=== PATIENT | female | born 1985 | race Caucasian/White ===

== ENCOUNTER 2017-05-29 11:38 | Emergency (ER) | payer BC ==
--- NOTE | 2017-05-29 12:51 | ED ---
General Adult HPI - General Chief complaint: Vaginal Bleeding Stated complaint: Positive test with bleeding Time Seen by Provider: 05/29/17 12:27 Source: patient, RN notes reviewed Mode of arrival: ambulatory Limitations: no limitations - History of Present Illness Initial comments: Patient 32-year-old female who presents emergency room today with a chief complaint of positive test and some vaginal spotting over the last week. She does admit that she try to bring status at home today and was positive. She does admit that she's been spotting over the last week. She states she is due for her menstrual cycle began in the next few days. She does admit to one previous with a miscarriage. She denies any other complaints or associated symptoms. Patient denies any recent fever, chills, shortness of breath, chest pain, back pain, abdominal pain, nausea or vomiting, numbness or tingling, dysuria or hematuria, constipation or diarrhea, headaches or visual changes, or any other complaints. - Related Data Home Medications Medication Instructions Recorded Confirmed No Known Home Medications [No 05/29/17 05/29/17 Known Home Medications] Allergies Allergy/AdvReac Type Severity Reaction Status Date / Time Penicillins Allergy Rash/Hives Verified 05/29/17 12:32 Review of Systems ROS Statement: Those systems with pertinent positive or pertinent negative responses have been documented in the HPI. ROS Other: All systems not noted in ROS Statement are negative. Past Medical History Past Medical History: No Reported History History of Any Multi-Drug Resistant Organisms: None Reported Past Surgical History: No Surgical Hx Reported Past Psychological History: No Psychological Hx Reported Smoking Status: Never smoker Past Alcohol Use History: None Reported Past Drug Use History: None Reported General Exam - General Exam Comments Initial Comments: General: The patient is awake and alert, in no distress, and does not appear acutely ill. Eye: Pupils are equal, round and reactive to light, extra-ocular movements are intact. No nystagmus. There is normal conjunctiva bilaterally. No signs of icterus. Ears, nose, mouth and throat: There are moist mucous membranes and no oral lesions. Neck: The neck is supple, there is no tenderness or JVD. Cardiovascular: There is a regular rate and rhythm. No murmur, rub or gallop is appreciated. Respiratory: Lungs are clear to auscultation, respirations are non-labored, breath sounds are equal. No wheezes, stridor, rales, or rhonchi. Gastrointestinal: Soft, non-distended, non-tender abdomen without masses or organomegaly noted. There is no rebound or guarding present. No CVA tenderness. Bowel sounds are unremarkable. Musculoskeletal: Normal ROM, no tenderness. Strength 5/5. Sensation intact. Pulses equal bilaterally 2+. Neurological: A&O x 3. CN II-XII intact, There are no obvious motor or sensory deficits. Coordination appears grossly intact. Speech is normal. Skin: Skin is warm and dry and no rashes or lesions are noted. Psychiatric: Cooperative, appropriate mood & affect, normal judgment. Limitations: no limitations Course Vital Signs 05/29/17 12:11 Temperature 98.3 F Pulse Rate 94 Respiratory 16 Rate Blood Pressure 142/74 O2 Sat by Pulse 100 Oximetry Medical Decision Making - Medical Decision Making Patient's ultrasound shows no visualized intrauterine at this time. There is 2 tiny 2 mm cystic loculated along the fundal endometrium. Both tiny early intrauterine gestational sac and pseudo-gestational sac of ectopic are possible. 2. A 3.9 cm heterogeneous mass located between the right ovary and uterus. 3. Moderate cul-de-sac and right adnexal free fluid. 4. Left ovarian corpus luteum cyst. His results were discussed with patient. Her beta-hCG is 586 today. Patient's remaining labs are unremarkable. Her Rh is negative. She has had some spotting. Will be given Auralgan here in the emergency room. Patient has declined a pelvic exam at this time. She states she would rather follow up with her [facility]. She is advised close follow-up with [facility] over the next 1-2 days. She is advised return to the emergency room symptoms increase or worsen. Patient states understanding and is in agreement. - Lab Data Result diagrams: 05/29/17 12:15 05/29/17 12:15 Lab Results 05/29/17 05/29/17 05/29/17 Range/Units 12:15 12:15 12:15 WBC 8.9 (3.8-10.6) k/uL RBC 4.77 (3.80-5.40) m/uL Hgb 14.5 (11.4-16.0) gm/dL Hct 43.4 (34.0-46.0) % MCV 91.1 (80.0-100.0) fL MCH 30.5 (25.0-35.0) pg MCHC 33.5 (31.0-37.0) g/dL RDW 13.9 (11.5-15.5) % Plt Count 244 (150-450) k/uL Neutrophils % 76 % Lymphocytes % 17 % Monocytes % 5 % Eosinophils % 1 % Basophils % 0 % Neutrophils # 6.8 (1.3-7.7) k/uL Lymphocytes # 1.5 (1.0-4.8) k/uL Monocytes # 0.4 (0-1.0) k/uL Eosinophils # 0.1 (0-0.7) k/uL Basophils # 0.0 (0-0.2) k/uL Sodium 139 (137-145) mmol/L Potassium 4.0 (3.5-5.1) mmol/L Chloride 105 (98-107) mmol/L Carbon Dioxide 23 (22-30) mmol/L Anion Gap 11 mmol/L BUN 11 (7-17) mg/dL Creatinine 0.67 (0.52-1.04) mg/dL Est GFR (MDRD) Af Amer >60 (>60 ml/min/1.73 sqM) Est GFR (MDRD) Non-Af >60 (>60 ml/min/1.73 sqM) Glucose 87 (74-99) mg/dL Calcium 9.6 (8.4-10.2) mg/dL Total Bilirubin 1.3 (0.2-1.3) mg/dL AST 19 (14-36) U/L ALT 29 (9-52) U/L Alkaline Phosphatase 45 (38-126) U/L Total Protein 7.8 (6.3-8.2) g/dL Albumin 4.9 (3.5-5.0) g/dL HCG, Quant mIU/mL Urine Color Urine Appearance (Clear) Urine pH (5.0-8.0) Ur Specific [place] (1.001-1.035) Urine Protein (Negative) Urine Glucose (UA) (Negative) Urine Ketones (Negative) Urine Blood (Negative) Urine Nitrite (Negative) Urine Bilirubin (Negative) Urine Urobilinogen (<2.0) mg/dL Ur Leukocyte Esterase (Negative) Urine RBC (0-5) /hpf Urine WBC (0-5) /hpf Ur Squamous Epith Cells (0-4) /hpf Urine Bacteria (None) /hpf Urine Mucus (None) /hpf Blood Type O Negative Blood Type Recheck No Antibody Screen 05/29/17 05/29/17 05/29/17 Range/Units 12:22 12:45 12:45 WBC (3.8-10.6) k/uL RBC (3.80-5.40) m/uL Hgb (11.4-16.0) gm/dL Hct (34.0-46.0) % MCV (80.0-100.0) fL MCH (25.0-35.0) pg MCHC (31.0-37.0) g/dL RDW (11.5-15.5) % Plt Count (150-450) k/uL Neutrophils % % Lymphocytes % % Monocytes % % Eosinophils % % Basophils % % Neutrophils # (1.3-7.7) k/uL Lymphocytes # (1.0-4.8) k/uL Monocytes # (0-1.0) k/uL Eosinophils # (0-0.7) k/uL Basophils # (0-0.2) k/uL Sodium (137-145) mmol/L Potassium (3.5-5.1) mmol/L Chloride (98-107) mmol/L Carbon Dioxide (22-30) mmol/L Anion Gap mmol/L BUN (7-17) mg/dL Creatinine (0.52-1.04) mg/dL Est GFR (MDRD) Af Amer (>60 ml/min/1.73 sqM) Est GFR (MDRD) Non-Af (>60 ml/min/1.73 sqM) Glucose (74-99) mg/dL Calcium (8.4-10.2) mg/dL Total Bilirubin (0.2-1.3) mg/dL AST (14-36) U/L ALT (9-52) U/L Alkaline Phosphatase (38-126) U/L Total Protein (6.3-8.2) g/dL Albumin (3.5-5.0) g/dL HCG, Quant 587.9 mIU/mL Urine Color Yellow Urine Appearance Cloudy H (Clear) Urine pH 6.5 (5.0-8.0) Ur Specific [place] 1.015 (1.001-1.035) Urine Protein Negative (Negative) Urine Glucose (UA) Negative (Negative) Urine Ketones Negative (Negative) Urine Blood Moderate H (Negative) Urine Nitrite Negative (Negative) Urine Bilirubin Negative (Negative) Urine Urobilinogen <2.0 (<2.0) mg/dL Ur Leukocyte Esterase Negative (Negative) Urine RBC 12 H (0-5) /hpf Urine WBC 2 (0-5) /hpf Ur Squamous Epith Cells 5 H (0-4) /hpf Urine Bacteria Rare H (None) /hpf Urine Mucus Rare H (None) /hpf Blood Type Blood Type Recheck Antibody Screen NEGATIVE Disposition Clinical Impression: Threatened miscarriage Disposition: HOME SELF-CARE Condition: Stable Instructions: Threatened Miscarriage (ED) Additional Instructions: Please follow-up with [facility] over the next 2 days. Please have repeat beta hCG in 2 days and have results sent to [facility]. Please return to the emergency room if there is any increase or worsening symptoms as discussed. Referrals: Vishal Plata MD [Primary Care Provider] - 1-2 days Time of Disposition: 14:37
[2017-05-29 13:03] LABS: Basophils % (A) 0 %; CH 31.7; Eosinophils # (A) 0.1 k/uL (0-0.7); Eosinophils % (A) 1 %; HCT 43.4 % (34.0-46.0); HGB 14.5 gm/dL (11.4-16.0); Luc # (Auto) 0.12; Luc % (Auto) 1; Lymphocytes # (A) 1.5 k/uL (1.0-4.8); Lymphocytes % (A) 17 %; MCH 30.5 pg (25.0-35.0); MCHC 33.5 g/dL (31.0-37.0); MCV 91.1 fL (80.0-100.0); Monocytes # (A) 0.4 k/uL (0-1.0); Monocytes % (A) 5 %; Neutrophils # (A) 6.8 k/uL (1.3-7.7); Neutrophils % (A) 76 %; RBC 4.77 m/uL (3.80-5.40); RDW 13.9 % (11.5-15.5); WBC 8.9 k/uL (3.8-10.6); WBC (Perox) 8.66
[2017-05-29 13:07] LABS: Appearance,Urine Cloudy (Clear); Bacteria,Urine Rare /hpf; Bilirubin,Urine Negative (Negative); Glucose,Urine (UA) Negative (Negative); Ketones,Urine Negative (Negative); Leukocyte Esterase,Urine Negative (Negative); Mucus,Urine Rare /hpf; Nitrite,Urine Negative (Negative); PH, Urine 6.5 (5.0-8.0); Particle Count 7670; Protein,Urine Negative (Negative); RBC,Urine 12 /hpf (0-5); Specific Gravity,Urine 1.015 (1.001-1.035); Squamous Epithelial Cell,Urine 5 /hpf (0-4); UA Billing (MACRO vs. MICRO) MICRO; Urobilinogen,Urine <2.0 mg/dL (<2.0); WBC,Urine 2 /hpf (0-5)
[2017-05-29 13:19] LABS: ALT 29 U/L (9-52); AST 19 U/L (14-36); Alkaline Phosphatase 45 U/L (38-126); Anion Gap 11 mmol/L; Blood Urea Nitrogen 11 mg/dL (7-17); Calcium 9.6 mg/dL (8.4-10.2); Carbon Dioxide 23 mmol/L (22-30); Chloride 105 mmol/L (98-107); Glucose 87 mg/dL (74-99); Non-African American GFR(MDRD) >60 (>60 ml/min/1.73 sqM); Sodium 139 mmol/L (137-145); Total Bilirubin 1.3 mg/dL (0.2-1.3); Total Protein 7.8 g/dL (6.3-8.2)
--- NOTE | 2017-05-29 14:07 | US ---
EXAMINATION TYPE: US OB <=14 wks transvag DATE OF EXAM: 05/29/2017 COMPARISON: NONE CLINICAL HISTORY: 32-year-old female Pain. spotting with positive test Date of LMP: 05/02/2017 Beta HcG (if available): not available at time of exam EXAM PERFORMED: Transvaginal (TV) and Transabdominal (TA) FINDINGS: EXAM MEASUREMENTS: GESTATIONAL AGE / DATING Physician Established: not established Dates by LMP: (3 weeks/6 days) EDC: 02/06/2018 Dates by First Scan: this is first scan Dates by Current Scan for: no IUP identified MATERNAL ANATOMY Uterus: 8.9 x 4.5 x 4.9 cm. Tiny 2 mm cystic locule along the fundal endometrium. Endometrium: 1.3 cm. Right Ovary: 2.8 x 1.8 x 2.8 cm Left Ovary: 3.0 x 2.8 x 2.8 cm Post CDS / Adnexa: there is a solid soft tissue density located between uterus and right ovary that d oes not demonstrates any vascularity and measures 3.9 x 2.6 x 3.6 cm, no peristalsing is seen. Presence of free fluid: Moderate free fluid in posterior cul de sac that extends to right adnexa. Presence of corpus luteal cyst: Within the left ovary measuring 2.3 x 1.3 x 1.6 cm [employer]PER[employer]OR [employer]ST[employer] NOTES: No IUP identified, there is a tiny anechoic area in the endometrium that could rep resent early gestational sac, patient is 3 weeks 6 days by LMP. Free fluid and solid mass area seen r ight adnexa. IMPRESSION: 1. No visualized intrauterine at this time. There is a tiny 2 mm cystic locule along the fu ndal endometrium. Both tiny early intrauterine gestational sac and pseudogestational sac of ectopic p regnancy are possible. Appropriate follow-up recommended. 2. A 3.9 cm heterogeneous mass located between the right ovary and uterus. Correlate with beta hCG le vels. Ectopic not excluded at this time. 3. Moderate cul-de-sac and right adnexal free fluid. 4. Left ovarian corpus luteum cyst.
[2017-05-29] MEDS ORDERED: Rhogam IMMUNE GLOBULIN 1,500 UNIT/1 ML IM ONE (14:18)
[2017-05-29 14:51] VITALS: TEMP 98.5
[2017-05-29 15:17] VITALS: BP 133/73; PULSE 97; RESP 18
== END 2017-05-29 15:16 | disposition home or self-care (01) ==
LOC: EC 11:38
DX: O20.0 Threatened abortion (principal); O34.81 Maternal care for other abnormalities of pelvic organs, first trimester; N83.12 Corpus luteum cyst of left ovary; O99.89 Other specified diseases and conditions complicating pregnancy, childbirth and the puerperium; N85.8 Other specified noninflammatory disorders of uterus; R19.09 Other intra-abdominal and pelvic swelling, mass and lump; Z88.0 Allergy status to penicillin; Z3A.01 Less than 8 weeks gestation of pregnancy
CPT/HCPCS: 99284; 96372; 90384; 36415; 86900; 86901; 80053; 85025; 86850; 81001; 84702; 87086; 76801; 76817; J2791

== ENCOUNTER → 2018-11-07 | Outpatient (CLI) | payer BC | END | disposition home or self-care (01) | LOC: LABWHC1 09:43 | PROVIDERS: ATTEND Obstetrics & Gynecology | DX: Z36.9 Encounter for antenatal screening, unspecified (principal) | CPT/HCPCS: 36415; 82950; 86038 ==

== ENCOUNTER 2019-01-02 06:11 | Inpatient (IN) | payer BC ==
[2019-01-02] MEDS ORDERED: LIDOCAINE 0.5% (PF) 5 MG/ML (50 ML SDV) SQ PRN (06:48)
[2019-01-02] MEDS ORDERED: METHYLERGONOVINE 0.2 MG/ML 1 ML AMP IM PRN (06:48)
[2019-01-02] MEDS ORDERED: OXYTOCIN 10 UNIT/ML 1 ML VIAL IM PRN (06:48)
[2019-01-02] MEDS ORDERED: TERBUTALINE 1 MG/ML VIAL SQ PRN (06:48)
[2019-01-02] MEDS ORDERED: CARBOPROST TROMETHAMINE 250 MCG/ML 1 ML AMP IM PRN (06:48)
[2019-01-02] MEDS ORDERED: OXYTOCIN 30 UNITS/500 ML NS 30 UNIT in SALINE 1 500ML.BAG IV SCH (07:00)
[2019-01-02] MEDS: LACTATED RINGERS 1,000 ML IV SCH ×3 (07:18→13:05)
[2019-01-02 07:29] LABS: Basophils % (A) 0 %; Eosinophils # (A) 0.1 k/uL (0-0.7); Eosinophils % (A) 1 %; HCT 35.3 % (34.0-46.0); HGB 12.1 gm/dL (11.4-16.0); Lymphocytes # (A) 1.5 k/uL (1.0-4.8); Lymphocytes % (A) 16 %; MCH 30.6 pg (25.0-35.0); MCHC 34.4 g/dL (31.0-37.0); Mean Platelet Volume 7.2; Monocytes # (A) 0.5 k/uL (0-1.0); Monocytes % (A) 5 %; Neutrophils % (A) 76 %; Platelet Count 253 k/uL (150-450); RBC 3.97 m/uL (3.80-5.40); RDW 13.1 % (11.5-15.5); WBC 9.2 k/uL (3.8-10.6)
--- NOTE | 2019-01-02 08:09 | P.HPOB ---
History of Present Illness H&P Date: 01/02/19 This is a 33-year-old white female 4 para 0030 EDC 01/29/2019 at 36 and one sevenths weeks' gestation. Patient presents this morning with spontaneous amniorrhexis, clear fluid at 0445 hours. Fetus is been active throughout the . She is having mild uterine contractions which she is not palpating. Past medical history is significant for positive MTH of our, 3 previous spontaneous miscarriages. Current medications baby aspirin daily, vitamin daily. Past surgical history is negative. Social history patient is , she is a nonsmoker, she denies alcohol or drug use. Family history is noncontributory. history significant for rubella status immune, blood type O-, hepatitis B surface antigen negative. HIV testing, gonorrhea Chlamydia cultures all ne gative. Group B strep cultures pending. On exam this is a pleasant white female who is 6 foot 1 inch, 199 pounds, blood pressure 133/85, vital signs are stable. The general physical exam is within normal limits. The cervix is 1 cm dilated, 50% effaced, -2 station, vertex presentation, with clear fluid noted on the perineal body. heart rate is consistent with reactive NST. Impression: 36 and one sevenths weeks intrauterine , spontaneous amniorrhexis. History of positive MTH of our, on baby aspirin. All signs reassuring. Plan: We will obtain records from the office as well as group B strep status. Antibiotics if appropriate. Oxytocin augmentation at this time. Continue close maternal and surveillance. Anticipate normal spontaneous vaginal delivery. Review of Systems Constitutional: Reports as per HPI Past Medical History Past Medical History: No Reported History Additional Past Medical History / Comment(s): (+) MTHFR History of Any Multi-Drug Resistant Organisms: None Reported Past Surgical History: No Surgical Hx Reported Smoking Status: Never smoker Medications and Allergies Home Medications Medication Instructions Recorded Confirmed Type Aspirin [Adult Low Dose Aspirin EC] 81 mg PO DAILY 01/02/19 01/02/19 History B12/Levomefolate Calcium/B-6 1 each PO DAILY 01/02/19 01/02/19 History [Foltx Tablet] Pnv,Calcium 72/Iron/Folic Acid 1 each PO DAILY 01/02/19 01/02/19 History [ Plus Tablet] Allergies Allergy/AdvReac Type Severity Reaction Status Date / Time Penicillins Allergy Rash/Hives Verified 01/02/19 06:35 Exam Intake and Output 01/01/19 01/02/19 01/02/19 22:59 06:59 14:59 Other: Weight 90.265 kg See exam dictation and H&P. Results Result Diagrams: 01/02/19 06:10 Assessment and Plan Assessment: 36 and one sevenths weeks intrauterine , spontaneous amniorrhexis. Plan: Oxytocin per hospital protocol. Continue close maternal and surveillance. Awaiting GBS strep cultures. Anticipate normal spontaneous vaginal delivery. Time with Patient: Less than 30
[2019-01-02 08:16] VITALS: BMI 26.2
[2019-01-02] MEDS ORDERED: BUTORPHANOL 1 MG/ML 1 ML VIAL IV PRN (11:49)
[2019-01-02] MEDS ORDERED: HYDROcodone/APAP 5-325MG 1 EACH TAB PO PRN (14:03)
[2019-01-02] MEDS ORDERED: LANOLIN CREAM 5 GM TUBE TOPICAL PRN (14:03)
[2019-01-02] MEDS ORDERED: diphenhydrAMINE 50 MG/ML 1 ML VIAL IVP PRN ×2 (14:03)
[2019-01-02] MEDS ORDERED: SIMETHICONE 80 MG CHEWABLE PO PRN (14:03)
[2019-01-02] MEDS ORDERED: diphenhydrAMINE ELIXIR 25 MG/10 ML CUP PO PRN (14:03)
[2019-01-02] MEDS ORDERED: BENZOCAINE/MENTHOL SPRAY 1 GM/SPRAY AEROSOL TOPICAL PRN (14:03)
[2019-01-02] MEDS ORDERED: WITCH HAZEL 1 EACH MED..PAD TOPICAL PRN (14:03)
[2019-01-02] MEDS ORDERED: ZOLPIDEM 5 MG TAB PO PRN (14:03)
[2019-01-02] MEDS ORDERED: HYDROCORTISONE 2.5% RECTAL CREAM 30 GM TUBE RECTAL PRN (14:03)
[2019-01-02] MEDS ORDERED: diphenhydrAMINE 50 MG CAP PO PRN (14:03)
[2019-01-02] MEDS ORDERED: ACETAMINOPHEN TAB 325 MG TAB PO PRN (14:03)
[2019-01-02] MEDS ORDERED: diphenhydrAMINE 25 MG CAP PO PRN (14:03)
--- NOTE | 2019-01-02 14:03 | P.PROBDLV ---
Vaginal Delivery Note - . Vaginal Delivery Note: This is a 33-year-old female 4 para 0030 EDC 01/29/2019 at 36 and one sevenths weeks' gestation. Patient presented from home with spontaneous amniorrhexis which was documented on admission, clear fluid, at 0445 hours. is unremarkable, positive MTHFR is noted per history, baby aspirin being taken daily. otherwise unremarkable, group B strep cultures negative. Please see admitting H&P for details. Oxytocin augmentation was started and titrated per hospital protocol. Patient progressed well through the first stage of labor and was judged to be completely dilated. She began the second stage of labor at that time. Excellent maternal expulsive efforts were noted. Perineal body was prepped and draped in usual sterile fashion. Infant's head delivered occiput anterior and she restituted accordingly. There was a nuchal cord 1 that was reduced on the perineal body. The right or anterior shoulder was gently and easily delivered from underneath the pubic symphysis at which time the oropharynx, nasopharynx, and external nares were all bulb suctioned. Patient was officially delivered of a liveborn female at 1343 hours. Umbilical cord was doubly clamped and ligated, she was handed to waiting nurses for evaluation where scores of 8 and 8 at one and 5 minutes respectively were given. weighed 6 lbs. 12 oz. The placenta was delivered spontaneously, it was inspected and noted to be intact with trivascul ar cord at 1346 hours. Uterus is then massaged. Inspection of cervix, vagina, perineum, periurethral, and perirectal areas revealed a small first-degree perineal laceration that was easily repaired with a single [id number] suture of 3-0 Vicryl. A mole on the right buttock was injected with lidocaine, 1%, and removed with a single snip of sharp scissor. It was completely benign and therefore discarded. A single [id number] suture of 0 Vicryl is placed on this region as well. Total estimated blood loss 250 mL's. All sponge needle and enhancement counts are correct at the end of t he procedure. Patient and her family are allowed to begin the bonding experience in the LDR.
[2019-01-02] MEDS ORDERED: OXYTOCIN 20 UNITS/1000 ML NS 1,000 ML IV SCH (14:15)
[2019-01-02] MEDS: IBUPROFEN 600 MG TAB PO PRN (19:55)
[2019-01-02] MEDS: SENNOSIDES-DOCUSATE SODIUM 1 EACH TAB PO SCH (19:55)
[2019-01-02] MEDS ORDERED: Rhogam IMMUNE GLOBULIN 1,500 UNIT/1 ML IM ONE (22:32)
[2019-01-03] MEDS: IBUPROFEN 600 MG TAB PO PRN ×3 (07:26→20:03)
--- NOTE | 2019-01-03 07:55 | P.DS ---
Providers Date of admission: 01/02/19 06:36 Expected date of discharge: 01/03/19 Attending physician: Kellen Benton Primary care physician: Stated None Hospital Course: This is a 33-year-old white female 4 para 0030 EDC 01/29/2019 at 36 and one sevenths weeks' gestation. Patient presented with spontaneous amniorrhexis which occurred at home, clear fluid. was remarkable for negative group B strep cultures, rubella status immune, blood type O-. Patient has a history of positive MTHFR, on baby aspirin daily. Please see dictated history and physical for details. Oxytocin augmentation was given. Patient went on to deliver vaginally a liveborn female infant with scores of 8 and 8 at one and 5 minutes respectively. There was a nuchal cord 1, and estimated blood loss of 250 mL's. A small first-degree perineal laceration was repaired. weighed 6 lbs. 12 oz. or 3050 g. Please see dictated delivery note for details This morning the patient and her infant are doing well. The patient is voiding, ambulating and passing flatus without difficulty. Vital signs are stable and she is afebrile. Fundus is firm and in the midline, symmetric and 18 week size. Extremities are negative for edema. Perineal body is clean and dry. Pain is well-controlled with Motrin. Patient is judged to be in very good condition for discharge home. I have reminded her to continue taking her baby aspirin daily as well as her vitamin daily. Breast-feeding is going well. She will call me with any fevers shakes or chills, foul smelling or copious lochia, with the passage of large blood clots, with any pain not alleviated by [id number] products, or indeed with any concerns. We have discussed options for contraception and we will review this further in the office. [place] infant will follow-up with crystallography teacher as recommended. Patient Condition at Discharge: Good Plan - Discharge Summary Discharge Rx Participant: No New Discharge Prescriptions: No Action Pnv,Calcium 72/Iron/Folic Acid [ Plus Tablet] 1 each PO DAILY B12/Levomefolate Calcium/B-6 [Foltx Tablet] 1 each PO DAILY Aspirin [Adult Low Dose Aspirin EC] 81 mg PO DAILY Discharge Medication List Aspirin [Adult Low Dose Aspirin EC] 81 mg PO DAILY 01/02/19 [History] B12/Levomefolate Calcium/B-6 [Foltx Tablet] 1 each PO DAILY 01/02/19 [History] Pnv,Calcium 72/Iron/Folic Acid [ Plus Tablet] 1 each PO DAILY 01/02/19 [History] Follow up Appointment(s)/Referral(s): Kellen Benton MD [STAFF PHYSICIAN] - 6 Weeks
[2019-01-03] MEDS: SENNOSIDES-DOCUSATE SODIUM 1 EACH TAB PO SCH (08:11)
[2019-01-04] MEDS: IBUPROFEN 600 MG TAB PO PRN ×2 (07:18→15:31)
[2019-01-04] MEDS: SENNOSIDES-DOCUSATE SODIUM 1 EACH TAB PO SCH ×2 (07:20→08:00)
[2019-01-04 15:53] VITALS: BP 125/75; PULSE 86; RESP 18; TEMP 98.2
== END 2019-01-04 22:00 | disposition home or self-care (01) | DRG 806 ==
LOC: FBPOP 06:11 → 4FBP 06:36
PROVIDERS: ADMIT Obstetrics & Gynecology; ATTEND Obstetrics & Gynecology
PROC: 0HQ9XZZ Repair Perineum Skin, External Approach (ICD-10-PCS; principal; 2019-01-02)
PROC: 0HB8XZZ Excision of Buttock Skin, External Approach (ICD-10-PCS; principal; 2019-01-02)
PROC: 10E0XZZ Delivery of Products of Conception, External Approach (ICD-10-PCS; principal; 2019-01-02)
DX: O42.913 Preterm premature rupture of membranes, unspecified as to length of time between rupture and onset of labor, third trimester (principal); E72.12 Methylenetetrahydrofolate reductase deficiency; Z37.0 Single live birth; O69.81X0 Labor and delivery complicated by cord around neck, without compression, not applicable or unspecified; O70.0 First degree perineal laceration during delivery; Z79.82 Long term (current) use of aspirin; O99.284 Endocrine, nutritional and metabolic diseases complicating childbirth; D22.5 Melanocytic nevi of trunk
CPT/HCPCS: 59025; 84112; 85025; 85461; 86850; 86870; 86880; 86900; 86901; 99213

== ENCOUNTER 2021-07-04 19:38 | Inpatient (IN) | payer BC ==
[2021-07-04] MEDS ORDERED: CLINDAMYCIN 900 MG in DEXTROSE 5% IN WATER 50 ML IVPB STA ×2 (20:08)
[2021-07-04] MEDS ORDERED: TERBUTALINE 1 MG/ML VIAL SQ PRN (20:08)
[2021-07-04] MEDS ORDERED: CARBOPROST TROMETHAMINE 250 MCG/ML 1 ML AMP IM PRN (20:08)
[2021-07-04] MEDS ORDERED: METHYLERGONOVINE 0.2 MG/ML 1 ML AMP IM PRN (20:08)
[2021-07-04] MEDS ORDERED: LIDOCAINE 0.5% (PF) 5 MG/ML (50 ML SDV) SQ PRN (20:08)
[2021-07-04] MEDS ORDERED: OXYTOCIN 10 UNIT/ML 1 ML VIAL IM PRN (20:08)
[2021-07-04] MEDS ORDERED: OXYTOCIN 30 UNITS/500 ML NS 30 UNIT in SALINE 1 500ML.BAG IV SCH (20:15)
[2021-07-04] MEDS: LACTATED RINGERS 1,000 ML IV SCH (20:32)
[2021-07-04 20:40] LABS: Basophils % (A) 0 %; Eosinophils % (A) 0 %; HCT 33.1 % (34.0-46.0); HGB 11.8 gm/dL (11.4-16.0); Lymphocytes # (A) 1.5 k/uL (1.0-4.8); Lymphocytes % (A) 17 %; MCH 32.9 pg (25.0-35.0); MCHC 35.7 g/dL (31.0-37.0); MCV 92.1 fL (80.0-100.0); Mean Platelet Volume 7.8; Monocytes # (A) 0.5 k/uL (0-1.0); Monocytes % (A) 6 %; Neutrophils # (A) 6.5 k/uL (1.3-7.7); Neutrophils % (A) 75 %; Platelet Count 190 k/uL (150-450); RDW 12.7 % (11.5-15.5); WBC 8.7 k/uL (3.8-10.6)
--- NOTE | 2021-07-04 20:53 | P.HPOB ---
History of Present Illness H&P Date: 07/04/21 Chief Complaint: 36-3/7 weeks, spontaneous rupture of membranes, labor The patient is a 36-year-old 5 para 0131 admitted at 36-3/7 weeks as established by last menstrual period and confirmed by second trimester ultrasound. She is admitted with documented spontaneous rupture of membranes and moderate bloody show. Fluid appears to be clear. heart rate tracing demonstrates a category 1 tracing. She does fall into the category of advanced maternal age and underwent trisomy testing which was negative. 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 She is Rh- and received RhoGAM at 28 weeks. Group B strep status is pending as it was just done this week and is not available yet. Obstetrical history: 5 para 0131 with one 36+ week normal vaginal delivery after spontaneous rupture of membranes in that as well. Current statistics are listed in history present illness. EDC of 07/29/2021 was established by last menstrual period and confirmed by second trimester ultrasound. Laboratory workup demonstrates a blood type of O- with a negative antibody screen. Rubella status is immune. The remainder of the laboratory workup was within normal limits. One hour Glucola was normal and group B strep status is pending. Gynecologic history: Unremarkable with no history of any infections to include STDs. Review of Systems Review of systems is confined to history of present illness. Past Medical History Past Medical History: No Reported History Additional Past Medical History / Comment(s): (+) MTHFR History of Any Multi-Drug Resistant Organisms: None Reported Past Surgical History: No Surgical Hx Reported Past Anesthesia/Blood Transfusion Reactions: No Reported Reaction Past Psychological History: Anxiety Additional Psychological History / Comment(s): not currently medicated Smoking Status: Never smoker Past Alcohol Use History: None Reported Past Drug Use History: None Reported - Past Family History Mother Family Medical History: No Reported History Medications and Allergies Home Medications Medication Instructions Recorded Confirmed Type Pnv,Calcium 72/Iron/Folic Acid 1 each PO DAILY 01/02/19 07/04/21 History [ Plus Tablet] Allergies Allergy/AdvReac Type Severity Reaction Status Date / Time amoxicillin Allergy Rash/Hives Verified 07/04/21 20:07 Penicillins Allergy Rash/Hives Verified 01/02/19 06:35 Exam Vital Signs Temp Pulse Resp BP Pulse Ox 07/04/21 20:27 97.9 F 109 H 16 134/74 99 Intake and Output 07/04/21 07/04/21 07/04/21 06:59 14:59 22:59 Other: Weight 86.183 kg In general, this is a well-developed, well-nourished white female in no acute distress. Her heart has a regular rhythm and rate without murmur. Her lungs are clear to auscultation bilaterally in all rodriguez. Her abdomen is gravid, nondistended, has normal active bowel sounds, soft, nontender, and without any palpable masses aside from uterine fundus. Her extremities without any cyanosis, clubbing, or significant edema and are nontender to palpation bilaterally. Digital cervical examination done by the nursing staff demonstrates her cervix to be 6+ centimeters dilated, relatively thick with the vertex in presentation at -2 station. Spontaneous rupture of membranes is confirmed. Results Result Diagrams: 07/04/21 20:36 Abnormal Lab Results - Last 24 Hours (Table) 07/04/21 Range/Units 20:36 RBC 3.60 L (3.80-5.40) m/uL Hct 33.1 L (34.0-46.0) % Assessment and Plan (1) premature rupture of membranes Current Visit: Yes Status: Acute Code(s): O42.919 - PRETRM AV ROM, UNSP TIME BETW RUPT AND ONST LABR, UNSP TRI SNOMED Code(s): 966448509 (2) 36 to 37 weeks gestation of Current Visit: Yes Status: Acute Code(s): MQO8152 - SNOMED Code(s): 567148808 Plan: The patient is admitted for active management of labor. There is a palpable bag of water had of the presenting head despite rupture of membranes. As the patient has currently unknown group B strep status, antibody prophylaxis has been ordered and we will attempts to wait for at least 4 hours for delivery of possible. She will have close maternal and surveillance and expectant management will be practiced. She is a good candidate for either IV or epidural analgesia if she chooses.
[2021-07-05] MEDS: LACTATED RINGERS 1,000 ML IV SCH (02:40)
[2021-07-05] MEDS ORDERED: ACETAMINOPHEN TAB 325 MG TAB PO PRN (03:49)
[2021-07-05] MEDS ORDERED: SIMETHICONE 80 MG CHEWABLE PO PRN (03:49)
[2021-07-05] MEDS ORDERED: LANOLIN CREAM 5 GM TUBE TOPICAL PRN (03:49)
[2021-07-05] MEDS ORDERED: BENZOCAINE/MENTHOL SPRAY 1 GM/SPRAY AEROSOL TOPICAL PRN (03:49)
[2021-07-05] MEDS ORDERED: HYDROcodone/APAP 5-325MG 1 EACH TAB PO PRN (03:49)
[2021-07-05] MEDS ORDERED: diphenhydrAMINE 50 MG CAP PO PRN (03:49)
[2021-07-05] MEDS ORDERED: HYDROcodone/APAP 7.5-325MG 1 EACH TAB PO PRN (03:49)
[2021-07-05] MEDS ORDERED: diphenhydrAMINE 25 MG CAP PO PRN (03:49)
[2021-07-05] MEDS ORDERED: HYDROCORTISONE 2.5% RECTAL CREAM 30 GM TUBE RECTAL PRN (03:49)
[2021-07-05] MEDS ORDERED: ZOLPIDEM 5 MG TAB PO PRN (03:49)
[2021-07-05] MEDS ORDERED: diphenhydrAMINE 50 MG/ML 1 ML VIAL IVP PRN ×2 (03:49)
--- NOTE | 2021-07-05 03:54 | P.PROBDLV ---
Vaginal Delivery Note - . Vaginal Delivery Note: The patient is a 36-year-old 5 para 1031 admitted at 36-3/7 weeks by good dating parameters with documented spontaneous rupture of membranes of clear fluid with some heavy bloody show at which time she was also found to be 6+ centimeters dilated. Her was uncomplicated though she did fall into the category of advanced maternal age and had a normal test for trisomy. She also is Rh- and received RhoGAM at 28 weeks. On labor and delivery, she was started on antibiotic prophylaxis for unknown group B strep status. She had no interventions over the next several hours in order to attempt to achieve adequate antibiotic prophylaxis. At approximately 4-5 hours of antibiotic prophylaxis, Pitocin augmentation started and then she underwent artificial rupture of membranes of a portion of the bag of water that remained intact in front of the head presenting. Clear fluid was again noted. She thereafter made fairly rapid progress to complete and pushed over the course of approximately 4 contractions, approximately 10 minutes, to a normal spontaneous vaginal delivery of a viable 7 lbs. 12 oz. baby boy with Apgars of 9 at 1 minute and 9 at 5 minutes delivered in the right occiput anterior position. There was a loose nuchal cord 1 which was reduced following delivery of the infant. The placenta was delivered spontaneously, intact, and grossly normal with a grossly normal, centrally inserted three-vessel cord which was also noted to have a true knot present. There were no lacerations of the perineum, vagina, or cervix. Estimated blood loss for the case was approximately 200 mL. There were no complications. All sponge, instrument, and needle counts were correct. Both mother and infant are resting comfortably in recovery.
[2021-07-05] MEDS ORDERED: OXYTOCIN 30 UNITS/500 ML NS 30 UNIT in SALINE 1 500ML.BAG IV SCH (04:00)
[2021-07-05] MEDS ORDERED: CLINDAMYCIN 900 MG in DEXTROSE 5% IN WATER 50 ML IVPB SCH ×2 (04:15)
[2021-07-05] MEDS: IBUPROFEN 600 MG TAB PO PRN ×3 (04:48→19:56)
[2021-07-05] MEDS: SENNOSIDES-DOCUSATE SODIUM 1 EACH TAB PO SCH ×2 (08:18→19:56)
[2021-07-06 07:51] LABS: Basophils % (A) 0 %; Eosinophils % (A) 1 %; HCT 34.9 % (34.0-46.0); Lymphocytes # (A) 1.3 k/uL (1.0-4.8); Lymphocytes % (A) 15 %; MCH 32.3 pg (25.0-35.0); MCHC 34.4 g/dL (31.0-37.0); Mean Platelet Volume 7.7; Monocytes # (A) 0.3 k/uL (0-1.0); Monocytes % (A) 4 %; Neutrophils # (A) 7.1 k/uL (1.3-7.7); Neutrophils % (A) 79 %; Platelet Count 198 k/uL (150-450); RBC 3.72 m/uL (3.80-5.40); RDW 12.9 % (11.5-15.5)
[2021-07-06 09:15] VITALS: BP 117/68; PULSE 66; RESP 14; TEMP 98.2
[2021-07-06] MEDS: SENNOSIDES-DOCUSATE SODIUM 1 EACH TAB PO SCH (09:20)
--- NOTE | 2021-07-06 11:06 | P.DS ---
Providers Date of admission: 07/04/21 20:07 Expected date of discharge: 07/06/21 Attending physician: Kellen Benton Primary care physician: Stated None - Discharge Diagnosis(es) (1) premature rupture of membranes Current Visit: Yes Status: Acute (2) 36 to 37 weeks gestation of Current Visit: Yes Status: Acute (3) Normal spontaneous vaginal delivery Current Visit: Yes Status: Acute Hospital Course: The patient is a 36-year-old 5 para 0131 admitted at 36-3/7 weeks by good dating parameters. She is admitted with documented spontaneous rupture of membranes and moderate bloody show. Her has been uncomplicated. She does fall into the category of advanced maternal age and had negative trisomy testing. She is also Rh- and received RhoGAM at 28 weeks per group B strep status was pending. As a result, antibody prophylaxis was started and no interventions were made until 4 hours following infusion of the first antibiotic. At that time, she had Pitocin augmentation started and underwent artificial rupture of a 4 coming portion of the membranes demonstrating further clear fluid. She progressed fairly quickly thereafter to complete and pushed to a normal spontaneous vaginal delivery of a viable 7 lbs. 12 oz. baby boy with Apgars of 9 at 1 minute and 9 at 5 minutes. Her course was unremarkable vital signs remained stable and her temperature was afebrile throu ghout. She was deemed stable for discharge on day #1 was discharged home to follow-up in the office in 6 weeks' time routinely. Discharge instructions included calling for any significantly increased bleeding or foul- smelling lochia, significantly increased fever or abdominal pain, perineal complaints, breast complaints, or anything else that concerned her. She was additionally instructed to have nothing in the vagina for at least 6 weeks time to include intercourse. She understood her instructions and agrees to follow up as noted above. Maternal blood type is O- and cord blood was sent for evaluation for the necessity of RhoGAM prior to discharge. Rubella status is immune. Procedures: #1. Antibiotic prophylaxis #2. Pitocin augmentation #3. Normal spontaneous vaginal delivery Patient Condition at Discharge: Stable Plan - Discharge Summary New Discharge Prescriptions: No Action Pnv,Calcium 72/Iron/Folic Acid [ Plus Tablet] 1 each PO DAILY Discharge Medication List Pnv,Calcium 72/Iron/Folic Acid [ Plus Tablet] 1 each PO DAILY 01/02/19 [History] Follow up Appointment(s)/Referral(s): Kellen Benton MD [STAFF PHYSICIAN] - 6 Weeks Discharge Disposition: HOME SELF-CARE
== END 2021-07-06 15:45 | disposition home or self-care (01) | DRG 807 ==
LOC: FBPOP 19:38 → 4FBP 20:07
PROVIDERS: ADMIT Obstetrics & Gynecology; ATTEND Obstetrics & Gynecology
PROC: 10E0XZZ Delivery of Products of Conception, External Approach (ICD-10-PCS; principal; 2021-07-05)
PROC: 10907ZC Drainage of Amniotic Fluid, Therapeutic from Products of Conception, Via Natural or Artificial Opening (ICD-10-PCS; 2021-07-05)
PROC: 3E033VJ Introduction of Other Hormone into Peripheral Vein, Percutaneous Approach (ICD-10-PCS; 2021-07-05)
DX: O69.81X0 Labor and delivery complicated by cord around neck, without compression, not applicable or unspecified (principal); O99.344 Other mental disorders complicating childbirth; O69.2XX0 Labor and delivery complicated by other cord entanglement, with compression, not applicable or unspecified; F41.9 Anxiety disorder, unspecified; Z3A.37 37 weeks gestation of pregnancy; Z37.0 Single live birth; Z88.1 Allergy status to other antibiotic agents; Z88.0 Allergy status to penicillin
CPT/HCPCS: 59025; 84112; 85025; 86850; 86900; 86901; 88307; 99213

== ENCOUNTER 2023-10-26 05:53 | Emergency (ER) | payer BC ==
[2023-10-26 06:23] LABS: Basophils % (A) 1 %; Eosinophils % (A) 1 %; HCT 44.1 % (34.0-46.0); HGB 14.9 gm/dL (11.4-16.0); Lymphocytes # (A) 1.2 k/uL (1.0-4.8); Lymphocytes % (A) 34 %; MCHC 33.7 g/dL (31.0-37.0); MCV 88.8 fL (80.0-100.0); Mean Platelet Volume 6.8; Monocytes # (A) 0.2 k/uL (0-1.0); Monocytes % (A) 6 %; Neutrophils # (A) 1.9 k/uL (1.3-7.7); Neutrophils % (A) 56 %; Platelet Count 242 k/uL (150-450); RBC 4.96 m/uL (3.80-5.40); RDW 12.2 % (11.5-15.5); WBC 3.5 k/uL (3.8-10.6)
[2023-10-26 06:25] VITALS: TEMP 97.8
[2023-10-26 06:37] LABS: ALT 13 U/L (4-34); AST 17 U/L (14-36); African American GFR (CKD) >90 (>60 ml/min/1.73 sqM); Albumin 5.1 g/dL (3.5-5.0); Alkaline Phosphatase 37 U/L (38-126); Anion Gap 15 mmol/L; Blood Urea Nitrogen 7 mg/dL (7-17); Calcium 9.4 mg/dL (8.4-10.2); Carbon Dioxide 20 mmol/L (22-30); Chloride 103 mmol/L (98-107); Glucose 116 mg/dL (74-99); Magnesium 2.1 mg/dL (1.6-2.3); Non-African American GFR(CKD) >90 (>60 ml/min/1.73 sqM); Potassium 3.8 mmol/L (3.5-5.1); Sodium 138 mmol/L (137-145); Total Protein 8.3 g/dL (6.3-8.2)
[2023-10-26 06:44] LABS: INR 1.1 (<1.2); Partial Thromboplastin Time 28.2 sec (22.0-30.0); Prothrombin Time 11.6 sec (10.0-12.5)
--- NOTE | 2023-10-26 08:05 | ED ---
General Adult HPI - General Chief complaint: Chest Pain Stated complaint: Chest pain Time Seen by Provider: 10/26/23 07:24 Source: patient Mode of arrival: ambulatory Limitations: no limitations - History of Present Illness Initial comments: Dictation was produced using [employer] dictation software. please excuse any grammatical, word or spelling errors. Chief Complaint: 38-year-old female presents to the emergency department for chest pain History of Present Illness: Patient is a 38-year-old female presents emergency department for 1 month of episodic chest and left-sided thoracic pain. She states that her symptoms come on intermittently. Sometimes sharp, sometimes dull. States that there are no exacerbating or mitigating factors. She has no associated shortness of breath swelling to the extremities. Denies any family history of cardiac disease. Patient has no known cardiac or pulmonary comorbidities. She has not sought medical attention for this. She was Shailesh her symptoms and was worried about something life-threatening. Patient is asymptomatic at the bedside. The ROS documented in this emergency department record has been reviewed and confirmed by me. Those systems with pertinent positive or negative responses have been documented in the HPI. All other systems are other negative and/or noncontributory. - Related Data Home Medications Medication Instructions Recorded Confirmed Vit No.180/Iron/Folic 1 each PO DAILY 01/02/19 07/04/21 [ Plus Tablet] Allergies Allergy/AdvReac Type Severity Reaction Status Date / Time amoxicillin Allergy Rash/Hives Verified 10/26/23 06:05 Penicillins Allergy Rash/Hives Verified 10/26/23 06:05 Review of Systems ROS Statement: Those systems with pertinent positive or pertinent negative responses have been documented in the HPI. ROS Other: All systems not noted in ROS Statement are negative. Past Medical History Past Medical History: No Reported History Additional Past Medical History / Comment(s): (+) MTHFR History of Any Multi-Drug Resistant Organisms: None Reported Past Surgical History: No Surgical Hx Reported Past Anesthesia/Blood Transfusion Reactions: No Reported Reaction Past Psychological History: Anxiety Smoking Status: Never smoker Past Alcohol Use History: None Reported Past Drug Use History: None Reported - Past Family History Mother Family Medical History: No Reported History General Exam - General Exam Comments Initial Comments: PHYSICAL EXAM: General Impression: Alert and oriented x3, not in acute distress HEENT: Normocephalic atraumatic, extra-ocular movements intact, pupils equal and reactive to light bilaterally, mucous membranes moist. Cardiovascular: Heart regular rate and rhythm Chest: Able to complete full sentences, no retractions, no tachypnea Abdomen: abdomen soft, non-tender, non-distended, no organomegaly Musculoskeletal: Pulses present and equal in all extremities, no peripheral edema Motor: no focal deficits noted Neurological: CN II-XII grossly intact, no focal motor or sensory deficits noted Skin: Intact with no visualized rashes Psych: Normal affect and mood Limitations: no limitations Course Vital Signs 10/26/23 10/26/23 06:05 08:11 Temperature 97.8 F Pulse Rate 110 H Pulse Rate [ 108 H Pulse Oximetery ] Respiratory 16 Rate Blood Pressure 143/72 O2 Sat by Pulse 97 Oximetry EKG Findings - EKG Comments: EKG Findings:: My EKG interpretation: Ventricular rate 90, sinus rhythm, KY interval 145, QRS 80, QTc 47. No KY prolongation, no QTC prolongation, no ST or T-wave changes noted. Overall, this EKG is unremarkable Medical Decision Making - Medical Decision Making Was pt. sent in by a medical professional or institution (, PA, POLICE DISPATCHER, urgent care, hospital, or long-term...) When possible be specific @ -No Did you speak to anyone other than the patient for history (EMS, parent, family, police, friend...)? What history was obtained from this source @ -No Did you review nursing and triage notes (agree or disagree)? Why? @ -I reviewed and agree with nursing and triage notes Were old charts reviewed (outside hosp., previous admission, EMS record, old EKG, old radiological studies, urgent care reports/EKG's, long-term records)? Report findings @ -No old charts were reviewed Differential Diagnosis (chest pain, altered mental status, abdominal pain women, abdominal pain men, vaginal bleeding, musculoskeletal, weakness, fever, dyspnea, syncope, headache, dizziness, GI bleed, back pain, seizure, CVA, palpatations, mental health)? @ -Differential Chest Pain: Stable Angina, Unstable Angina, STEMI, NSTEMI Aortic Dissection, Pneumothorax, Musculoskeletal, Esophageal Spasm GERD, Cholecystitis, Pancreatitis, Zoster, this is not meant to be an all-inclusive list. EKG interpreted by me (3pts min.). @ -See above X-rays interpreted by me (1pt min.). @ -X-ray shows no acute processes CT interpreted by me (1pt min.). @ -None done U/S interpreted by me (1pt. min.). @ -None done What testing was considered but not performed or refused? (CT, X-rays, U/S, labs)? Why? @ -None What meds were considered but not given or refused? Why? @ -None Did you discuss the management of the patient with other professionals (professionals i.e. , PA, POLICE DISPATCHER, lab, RT, psych nurse, sr. social media & mobile manager, chair installer, teacher, senior officer, special education case manager)? Give summary @ -No Was smoking cessation discussed for >3mins.? @ -No Was critical care preformed (if so, how long)? @ -No Were there social determinants of health that impacted care today? How? (Homele ssness, low income, unemployed, alcoholism, drug addiction, transportation, low edu. Level, literacy, decrease access to med. care, half-way, rehab)? @ -No Was there de-escalation of care discussed even if they declined (Discuss DNR or withdrawal of care, Hospice)? DNR status @ -No What co-morbidities impacted this encounter? (DM, HTN, Smoking, COPD, CAD, Cancer, CVA, ARF, Chemo, Hep., AIDS, mental health diagnosis, sleep apnea, morbid obesity)? @ -None Was patient admitted / discharged? Hospital course, mention meds given and route, prescriptions, significant lab abnormalities, going to OR and other pertinent info. @ -38-year-old female presents emergency department for atypical chest pain. Vital signs stable. Patient well-appearing. Laboratory evaluation obtained. Mild leukopenia 3.5. Coag panel d-dimer is negative. Metabolic panel is within acceptable limits. Patient not . Patient discharged. She has no high- risk features. Advised follow-up with her doctor. Undiagnosed new problem with uncertain prognosis? @ -No Drug Therapy requiring intensive monitoring for toxicity (Heparin, Nitro, Insulin, Cardizem)? @ -No Were any procedures done? @ -No Diagnosis/symptom? Acute, or Chronic, or Acute on Chronic? Uncomplicated (without systemic symptoms) or Complicated (systemic symptoms)? @ -Chest pain, no high-risk features Side effects of treatment? @ -No Exacerbation, Progression, or Severe Exacerbation? @ -No Poses a threat to life or bodily function? How? (Chest pain, [place], [place], pneumonia, PE, COPD, DKA, ARF, appy, cholecystitis, CVA, Diverticulitis, Homicidal, Suicidal, threat to staff... and all critical care pts) @ -No - Lab Data Result diagrams: 10/26/23 06:10 10/26/23 06:10 Lab Results 10/26/23 10/26/23 10/26/23 Range/Units 06:10 06:10 06:10 WBC 3.5 L (3.8-10.6) k/uL RBC 4.96 (3.80-5.40) m/uL Hgb 14.9 (11.4-16.0) gm/dL Hct 44.1 (34.0-46.0) % MCV 88.8 (80.0-100.0) fL MCH 30.0 (25.0-35.0) pg MCHC 33.7 (31.0-37.0) g/dL RDW 12.2 (11.5-15.5) % Plt Count 242 (150-450) k/uL MPV 6.8 Neutrophils % 56 % Lymphocytes % 34 % Monocytes % 6 % Eosinophils % 1 % Basophils % 1 % Neutrophils # 1.9 (1.3-7.7) k/uL Lymphocytes # 1.2 (1.0-4.8) k/uL Monocytes # 0.2 (0-1.0) k/uL Eosinophils # 0.0 (0-0.7) k/uL Basophils # 0.0 (0-0.2) k/uL PT 11.6 (10.0-12.5) sec INR 1.1 (<1.2) APTT 28.2 (22.0-30.0) sec D-Dimer (<0.60) mg/L FEU Sodium 138 (137-145) mmol/L Potassium 3.8 (3.5-5.1) mmol/L Chloride 103 (98-107) mmol/L Carbon Dioxide 20 L (22-30) mmol/L Anion Gap 15 mmol/L BUN 7 (7-17) mg/dL Creatinine 0.58 (0.52-1.04) mg/dL Est GFR (CKD-EPI)AfAm >90 (>60 ml/min/1.73 sqM) Est GFR (CKD-EPI)NonAf >90 (>60 ml/min/1.73 sqM) Glucose 116 H (74-99) mg/dL Calcium 9.4 (8.4-10.2) mg/dL Magnesium 2.1 (1.6-2.3) mg/dL Total Bilirubin 2.0 H (0.2-1.3) mg/dL AST 17 (14-36) U/L ALT 13 (4-34) U/L Alkaline Phosphatase 37 L (38-126) U/L Troponin I (0.000-0.034) ng/mL Total Protein 8.3 H (6.3-8.2) g/dL Albumin 5.1 H (3.5-5.0) g/dL Urine HCG, Qual (Not Detectd) 10/26/23 10/26/23 10/26/23 Range/Units 06:10 06:10 06:10 WBC (3.8-10.6) k/uL RBC (3.80-5.40) m/uL Hgb (11.4-16.0) gm/dL Hct (34.0-46.0) % MCV (80.0-100.0) fL MCH (25.0-35.0) pg MCHC (31.0-37.0) g/dL RDW (11.5-15.5) % Plt Count (150-450) k/uL MPV Neutrophils % % Lymphocytes % % Monocytes % % Eosinophils % % Basophils % % Neutrophils # (1.3-7.7) k/uL Lymphocytes # (1.0-4.8) k/uL Monocytes # (0-1.0) k/uL Eosinophils # (0-0.7) k/uL Basophils # (0-0.2) k/uL PT (10.0-12.5) sec INR (<1.2) APTT (22.0-30.0) sec D-Dimer 0.24 (<0.60) mg/L FEU Sodium (137-145) mmol/L Potassium (3.5-5.1) mmol/L Chloride (98-107) mmol/L Carbon Dioxide (22-30) mmol/L Anion Gap mmol/L BUN (7-17) mg/dL Creatinine (0.52-1.04) mg/dL Est GFR (CKD-EPI)AfAm (>60 ml/min/1.73 sqM) Est GFR (CKD-EPI)NonAf (>60 ml/min/1.73 sqM) Glucose (74-99) mg/dL Calcium (8.4-10.2) mg/dL Magnesium (1.6-2.3) mg/dL Total Bilirubin (0.2-1.3) mg/dL AST (14-36) U/L ALT (4-34) U/L Alkaline Phosphatase (38-126) U/L Troponin I <0.012 (0.000-0.034) ng/mL Total Protein (6.3-8.2) g/dL Albumin (3.5-5.0) g/dL Urine HCG, Qual Not Detected (Not Detectd) Disposition Clinical Impression: Chest pain Disposition: HOME SELF-CARE Condition: Good Instructions (If sedation given, give patient instructions): Chest Pain (ED) Is patient prescribed a controlled substance at d/c from ED?: No Referrals: None,Stated [Primary Care Provider] - 1-2 days Forms: Area PCPs Time of Disposition: 09:24
--- NOTE | 2023-10-26 08:15 | XR ---
EXAMINATION TYPE: XR chest 2V DATE OF EXAM: 10/26/2023 6:28 AM CLINICAL INDICATION:Female, 38 years old with history of Chest Pain; [facility] COMPARISON: None TECHNIQUE: XR chest 2V. Frontal PA and lateral views of the chest. FINDINGS: Lines/Tubes: None. Heart/mediastinum: Heart size is normal. Mediastinal silhouette is otherwise unremarkable. Pulmonary vascularity: Not increased, Lungs/Pleura: There is no evidence of pleural effusion, focal consolidation, or pneumothorax. Musculoskeletal: No acute osseous abnormality demonstrated in the limits of the exam. Mild degenerat blessing changes of the spine and shoulders. Other findings: None. IMPRESSION: No acute cardiopulmonary abnormality.
[2023-10-26 10:13] VITALS: BP 128/76; PULSE 70; RESP 18
== END 2023-10-26 09:53 | disposition home or self-care (01) ==
LOC: EC 05:53
DX: R07.89 Other chest pain (principal); Z86.59 Personal history of other mental and behavioral disorders; Z88.0 Allergy status to penicillin
CPT/HCPCS: 36415; 71046; 80053; 81025; 83735; 84484; 85025; 85379; 85610; 85730; 93005; 99285

== ENCOUNTER → 2023-11-29 | Outpatient (CLI) | payer BC ==
--- NOTE | 2023-11-30 09:14 | MM ---
Reason for Exam: Screening (asymptomatic). Baseline mammogram. Patient History: Menarche at age 14. First Full-Term at age 34. Late child-bearing (after 30). Mother had breast cancer, age 66. Last menstrual period: 11/15/2023 Risk Values: Comfort 5 year model risk: 0.8%. NCI Lifetime model risk: 17.9%. Prior Study Comparison: Patient's first Mammogram. Tissue Density: The breast tissue is heterogeneously dense. This may lower the sensitivity of mammography. Findings: Analyzed By CAD. There is no suspicious group of microcalcifications or new suspicious mass. Overall Assessment: Negative, BI-RAD 1 Management: Screening Mammogram of both breasts in [address] [facility] will attempt to contact patient to return for supplemental views and ultrasound if indicated. Patient should continue monthly self-breast exams. A clinical breast exam by your physician is recommended on an annual basis. This exam should not preclude additional follow-up of suspicious palpable abnormalities. Note on Comfort scores and lifetime risk: 1. A Comfort score greater than 3% is considered moderate risk. If this is the case, consider specialist referral to assess eligibility for a risk reducing agent. 2. If overall lifetime risk for the development of breast cancer is 20% or higher, the patient may qualify for future screening with alternating mammogram and breast MRI. Electronically signed and approved by: Jayson Rodriguez DO
== END | disposition home or self-care (01) ==
LOC: RADMAMWWP 16:15
PROVIDERS: ATTEND Obstetrics & Gynecology
DX: Z12.31 Encounter for screening mammogram for malignant neoplasm of breast (principal); Z80.3 Family history of malignant neoplasm of breast
CPT/HCPCS: 77063; 77067

== ENCOUNTER → 2025-01-17 | Outpatient (CLI) | payer BC ==
--- NOTE | 2025-01-17 09:52 | MM ---
Reason for Exam: Screening (asymptomatic). Last mammogram was performed 1 year(s) and 2 month(s) ago. Patient History: Menarche at age 14. First Full-Term at age 34. Late child-bearing (after 30). Hormonal Contraceptives for 2 years from age 29 until age 31. Mother had breast cancer, age 66. Mother tested for BRCA1 outcome was negative. Risk Values: Comfort 5 year model risk: 0.9%. NCI Lifetime model risk: 17.8%. Prior Study Comparison: 11/29/2023 Bilateral MG 3D screening mammo w/cad, [facility]. Tissue Density: The breasts are heterogeneously dense, which may obscure small masses. Findings: Analyzed By CAD. There is no suspicious group of microcalcifications or new suspicious mass in either breast. Overall Assessment: Benign, BI-RAD 2 Management: Screening Mammogram of both breasts in 1 year. . Patient should continue monthly self-breast exams. A clinical breast exam by your physician is recommended on an annual basis. This exam should not preclude additional follow-up of suspicious palpable abnormalities. Note on Comfort scores and lifetime risk: 1. A Comfort score greater than 3% is considered moderate risk. If this is the case, consider specialist referral to assess eligibility for a risk reducing agent. 2. If overall lifetime risk for the development of breast cancer is 20% or higher, the patient may qualify for future screening with alternating mammogram and breast MRI. [facility], , 01/17/2025 9:50 AM. Electronically signed and approved by: Ernie Valderrama M.D. Radiologis
== END | disposition home or self-care (01) ==
LOC: RADMAMWWP 09:01
PROVIDERS: ATTEND Obstetrics & Gynecology
DX: Z12.31 Encounter for screening mammogram for malignant neoplasm of breast (principal); R92.333 Mammographic heterogeneous density, bilateral breasts; Z80.3 Family history of malignant neoplasm of breast; Z92.0 Personal history of contraception
CPT/HCPCS: 77063; 77067